=== PATIENT | male | born 1945 | race Caucasian/White ===

== ENCOUNTER 2017-12-27 06:45 | Emergency (ER) | payer MEDICARE, OTHER ==
[~2017-12-27] VITALS: Ht 180.3 cm; Wt 65.8 kg
[2017-12-27 07:46] LABS: Source, Urine Clean Catch
[2017-12-27 07:49] LABS: Bilirubin, Urine Neg (Neg); Blood, Urine 3+ (Neg); Glucose Qualitative, Urine Neg (Neg); Ketones, Urine 1+ (Neg); Leukocyte Esterase, Urine Neg (Neg); Nitrite, Urine Neg (Neg); Protein, Urine 1+ (Neg); Specific Gravity, Urine 1.025 (1.003-1.022); Urobilinogen, Urine NORM (Normal)
[2017-12-27 07:54] LABS: Appearance, Urine Clear (Clear); Color, Urine Yellow (P-Yellow)
[2017-12-27 07:56] LABS: Amorphous Light (0-Heavy); Bacteria Not Seen /hpf; Mucus Light (0-Heavy); Red Blood Cells, Urine 0-2 /hpf (0-2); Squamous Epithelial Cells Not Seen /hpf (Few); White Blood Cells, Urine Not Seen /hpf (0-5)
[2017-12-27 08:00] LABS: BASOPHILS ABSOLUTE AUTO 0.03 K/mm3 (0.00-0.23); BASOPHILS PERCENT AUTO 0 % (0-2); EOSINOPHILS ABSOLUTE AUTO 0.04 K/mm3 (0.00-0.68); EOSINOPHILS PERCENT AUTO 1 % (0-6); Hematocrit 44.1 % (37.0-53.0); Hemoglobin 14.4 g/dL (13.5-17.5); IMMATURE GRAN ABSOLUTE AUTO 0.04 K/mm3 (0.00-0.10); IMMATURE GRAN PERCENT AUTO 1 % (0-1); LYMPHOCYTES ABSOLUTE AUTO 0.69 K/mm3 (0.84-5.20); LYMPHOCYTES PERCENT AUTO 8 % (21-46); MONOCYTES PERCENT AUTO 5 % (4-13); Mean Corpuscular HGB 31.4 pg (26.0-34.0); Mean Corpuscular HGB Conc 32.7 g/dL (31.5-36.5); Mean Corpuscular Volume 96 fL (80-100); Mean Platelet Volume 10.7 fL (9.1-12.4); NEUTROPHILS PERCENT AUTO 86 % (41-73); Platelet Count 181 K/mm3 (150-400); RDW Coefficient Variation 12.9 % (11.7-14.2); RDW Standard Deviation 45.3 fL (35.1-46.3); Red Blood Cell Count 4.58 M/mm3 (4.30-5.90)
[2017-12-27 08:25] LABS: Alanine Aminotransfer (ALT/SGP 25 U/L (12-78); Albumin, Blood 3.8 g/dL (3.4-5.0); Alk Phos 77 U/L (50-136); Anion Gap 6 mmol/L (6-16); Aspartate Aminotrans (AST/SGOT 22 U/L (12-37); Bilirubin, Total 0.6 mg/dL (0.1-1.0); Blood Urea Nitrogen 16 mg/dL (8-24); Bun/Creatinine Ratio 19.6 (12.0-20.0); CO2, Blood 28 mmol/L (21-32); Calcium, Blood 8.6 mg/dL (8.5-10.1); Chloride, Blood 108 mmol/L (98-108); Creatinine, Blood 0.82 mg/dL (0.60-1.20); Globulin, Blood 3.9 g/dL (2.2-4.0); Glomerular Filtration Rate >60 (60-); Glucose, Blood 120 mg/dL (70-99); Sodium, Blood 142 mmol/L (136-145); Total Protein, Blood 7.7 g/dL (6.4-8.2)
[2017-12-27] MEDS ORDERED: Zofran Odt4 MG SL (09:16)
[2017-12-27] MEDS ORDERED: Ultram50 MG PO (09:16)
== END 2017-12-27 09:20 | disposition home or self-care (01) ==
LOC: ER 06:45
PROVIDERS: Physician Assistant
DX: R10.32 Left lower quadrant pain (principal); R11.0 Nausea; Z87.891 Personal history of nicotine dependence
CPT/HCPCS: 36415; 74176; 80053; 81000; 81001; 83690; 85025; 99284

== ENCOUNTER 2021-03-08 12:00 | Day surgery (SDC) | payer MEDICARE, OTHER ==
[~2021-03-08] VITALS: Ht 180.3 cm; Wt 62.8 kg
[~2021-03-08 12:00] MED LIST: Ultram50 MG PO; Zofran Odt4 MG SL
== END 2021-03-08 14:31 | disposition home or self-care (01) ==
LOC: ORSCSDS 12:00
PROVIDERS: Student in an Organized Health Care Education/Training Program
PROC: 0DBL8ZX Excision of Transverse Colon, Via Natural or Artificial Opening Endoscopic, Diagnostic (ICD-10-PCS; principal; 2021-03-08 13:15)
PROC: 0DBK8ZX Excision of Ascending Colon, Via Natural or Artificial Opening Endoscopic, Diagnostic (ICD-10-PCS; principal; 2021-03-08 13:15)
PROC: 0DBH8ZX Excision of Cecum, Via Natural or Artificial Opening Endoscopic, Diagnostic (ICD-10-PCS; principal; 2021-03-08 13:15)
DX: Z12.11 Encounter for screening for malignant neoplasm of colon (principal); Z86.010 Personal history of colon polyps; D12.3 Benign neoplasm of transverse colon; D12.2 Benign neoplasm of ascending colon; D12.0 Benign neoplasm of cecum; D12.5 Benign neoplasm of sigmoid colon; K57.30 Diverticulosis of large intestine without perforation or abscess without bleeding; K64.8 Other hemorrhoids; K64.4 Residual hemorrhoidal skin tags
CPT/HCPCS: 88305; J0330; J0461; J2405; J2704; J7120

== ENCOUNTER → 2021-03-20 | Outpatient (CLI) | payer MEDICARE, OTHER | END | disposition home or self-care (01) | LOC: LAB SHORT 14:52 → LAB 14:52 | DX: D22.5 Melanocytic nevi of trunk (principal); L57.0 Actinic keratosis | CPT/HCPCS: 88305 ==

== ENCOUNTER 2022-09-09 16:24 | Emergency (ER) | payer MEDICARE, OTHER ==
[~2022-09-09] VITALS: Ht 180.3 cm; Wt 68.0 kg
[2022-09-09] MEDS ORDERED: CEPH500 PO (17:31)
== END 2022-09-09 17:37 | disposition home or self-care (01) ==
LOC: ER 16:24
DX: S81.012A Laceration without foreign body, left knee, initial encounter (principal); W29.3XXA Contact with powered garden and outdoor hand tools and machinery, initial encounter; Z87.891 Personal history of nicotine dependence
CPT/HCPCS: 90714; A9270

== ENCOUNTER 2024-08-06 16:27 | Inpatient (IN) | payer MEDICARE, OTHER ==
[~2024-08-06] VITALS: Ht 180.3 cm; Wt 81.7 kg
[~2024-08-06 16:27] MED LIST changes: +Amiodarone HCl 50 MG / ML 3 ML Amp IV ONE; +Atropine Sulfate 0.1 MG/ML 10ML SYR IV ONE; +CEPH500 PO
[2024-08-06 18:10] LABS: BASOPHILS ABSOLUTE AUTO 0.01 K/mm3 (0.00-0.23); BASOPHILS PERCENT AUTO 0 % (0-2); EOSINOPHILS PERCENT AUTO 0 % (0-6); Hematocrit 46.6 % (37.0-53.0); IMMATURE GRAN ABSOLUTE AUTO 0.01 K/mm3 (0.00-0.10); IMMATURE GRAN PERCENT AUTO 0 % (0-1); LYMPHOCYTES ABSOLUTE AUTO 0.27 K/mm3 (0.84-5.20); LYMPHOCYTES PERCENT AUTO 5 % (21-46); MONOCYTES ABSOLUTE AUTO 0.05 K/mm3 (0.16-1.47); MONOCYTES PERCENT AUTO 1 % (4-13); Mean Corpuscular HGB 32.7 pg (26.0-34.0); Mean Corpuscular HGB Conc 34.3 g/dL (31.5-36.5); Mean Corpuscular Volume 95 fL (80-100); Mean Platelet Volume 10.8 fL (9.1-12.4); NEUTROPHILS ABSOLUTE AUTO 4.92 K/mm3 (1.96-9.15); NEUTROPHILS PERCENT AUTO 94 % (41-73); Platelet Count 205 K/mm3 (150-400); RDW Coefficient Variation 12.9 % (11.7-14.2); RDW Standard Deviation 44.4 fL (35.1-46.3); White Blood Cell Count 5.26 K/mm3 (4.00-11.30)
[2024-08-06 18:46] LABS: Magnesium, Blood 2.4 mg/dL (1.6-2.4)
[2024-08-06 18:56] LABS: Bilirubin, Total 0.5 mg/dL (0.1-1.0); Bun/Creatinine Ratio 22.3 (12.0-20.0); Calcium, Blood 9.5 mg/dL (8.5-10.1); Creatinine, Blood 0.63 mg/dL (0.60-1.20); Globulin, Blood 4.2 g/dL (2.2-4.0); Potassium, Blood 4.2 mmol/L (3.5-5.5); Total Protein, Blood 8.2 g/dL (6.4-8.2)
[2024-08-06 18:58] LABS: C-REACTIVE PROTEIN, EXT RANGE 1.63 mg/dL (0.000-0.300)
[2024-08-06 21:16] LABS: Appearance, CSF Clear (Clear); Color, CSF No Color (No Color)
[2024-08-06 21:17] LABS: RBC Count, CSF 2 /mm3 (0-0)
[2024-08-06 21:19] LABS: Cryptococcus Neoformans/Gattii Not Detected (NOT DETECT); Enterovirus Not Detected (NOT DETECT); Escherichia Coli K1 Not Detected (NOT DETECT); Haemophilus Influenza Not Detected (NOT DETECT); Herpes Simplex Virus 1 Not Detected (NOT DETECT); Herpes Simplex Virus 2 Not Detected (NOT DETECT); Human Herpesvirus 6 Not Detected (NOT DETECT); Human Parechovirus Not Detected (NOT DETECT); Listeria Monocytogenes Not Detected (NOT DETECT); Neisseria Meningitidis Not Detected (NOT DETECT); Streptococcus Agalactiae Not Detected (NOT DETECT); Streptococcus Pneumoniae Not Detected (NOT DETECT); Varicella Zoster Virus Not Detected (NOT DETECT)
[2024-08-06 21:25] LABS: Appearance, CSF Clear (Clear); Color, CSF No Color (No Color); RBC Count, CSF 126 /mm3 (0-0); WBC Count, CSF 0 /mm3 (0-5)
[2024-08-06 21:26] LABS: Glucose, CSF 76 mg/dL (40-70)
[2024-08-06 21:34] LABS: WBC Count, CSF 0 /mm3 (0-5)
[2024-08-06] MEDS ORDERED: Ondansetron HCl 2 MG / ML 2ML Vial IV PRN (22:10)
[2024-08-06] MEDS ORDERED: FLU VACC TS2024-25(6MOS UP)/PF 45 MCG/0.5 ML SYRINGE IM ONE (22:10)
[2024-08-06] MEDS ORDERED: Atropine Sulfate 0.1 MG/ML 10ML SYR IV PRN (22:35)
[2024-08-06] MEDS ORDERED: Lactated Ringer's 1,000 ML IV SCH (23:00)
[2024-08-06 23:25] LABS: Thyroid Stimulating Hormone 0.45 uIU/mL (0.360-4.800)
[2024-08-07] VITALS (43 sets, daily range): BP systolic 80–210; BP diastolic 50–122
[2024-08-07 01:32] LABS: Base Excess Venous -1.9 mmol/L; Bicarbonate Venous 22.6 mmol/L (24.0-30.0); PCO2 Venous 38.5 mmHg (38-42); pH Blood Venous 7.39 (7.34-7.37)
--- NOTE | 2024-08-07 01:49 | NUR ---
ASSUMED CARE TRANSFERED FROM PCU TO ICU FROM [facility]
--- NOTE | 2024-08-07 03:10 | NUR ---
UPDATE @ 0200 NURSE WAS WITH PATIENT DOING ASSESSMENT AND PATIENT STATED HE WAS GOING TO GET SICK. NURSE GOT HIM EMESIS BAG, PATIENT BECAME BRADYCRADIC 49 AND DIAPHORETIC WITH HYPOTENSION. PATIENT COULD NOT VOMIT AND NURSE GOT SUCTION AND HELPED PATIENT. SMALL AMOUNTS OF SALIVA WAS SUCTIONED. GOT PATIENT COLD RAGS PLACED ON NECK AND FOREHEAD. BLOOD SUGAR WAS CHECKED 135, HR WENT BACK UP WITH BLOOD PRESSURE. PATIENT STAtED HE FELT BETTER.
[2024-08-07 04:25] LABS: Base Excess Venous -2.8 mmol/L; Bicarbonate Venous 22.5 mmol/L (24.0-30.0); PCO2 Venous 34.4 mmHg (38-42); pH Blood Venous 7.41 (7.34-7.37)
--- NOTE | 2024-08-07 04:42 | NUR ---
UPDATE @ 0330 PATIENT CALLED NURSE WITH HELPS WHO IS AT BEDSIDE. PATIENT SATED IN WHISPER VOICE THAT HE NEEDED TO BE SUCTIONED. NURSE SUCTIONED HIM AND SALIVA WAS SUCTIONED OUT. NURSE ASKED PATEINT IF HE WAS BETTER AND PATIENT SAID YES. CALL LIGHT WITHIN REACH. DR. FLOWERS AWARE
[2024-08-07 04:51] LABS: BASOPHILS ABSOLUTE AUTO 0.01 K/mm3 (0.00-0.23); BASOPHILS PERCENT AUTO 0 % (0-2); EOSINOPHILS PERCENT AUTO 0 % (0-6); Hematocrit 42.9 % (37.0-53.0); Hemoglobin 14.6 g/dL (13.5-17.5); IMMATURE GRAN ABSOLUTE AUTO 0.05 K/mm3 (0.00-0.10); IMMATURE GRAN PERCENT AUTO 0 % (0-1); LYMPHOCYTES ABSOLUTE AUTO 0.41 K/mm3 (0.84-5.20); LYMPHOCYTES PERCENT AUTO 3 % (21-46); MONOCYTES ABSOLUTE AUTO 0.78 K/mm3 (0.16-1.47); MONOCYTES PERCENT AUTO 6 % (4-13); Mean Corpuscular HGB 31.4 pg (26.0-34.0); Mean Corpuscular Volume 92 fL (80-100); Mean Platelet Volume 10.4 fL (9.1-12.4); NEUTROPHILS ABSOLUTE AUTO 12.95 K/mm3 (1.96-9.15); NEUTROPHILS PERCENT AUTO 91 % (41-73); Platelet Count 206 K/mm3 (150-400); RDW Coefficient Variation 12.9 % (11.7-14.2); RDW Standard Deviation 43.4 fL (35.1-46.3); Red Blood Cell Count 4.65 M/mm3 (4.30-5.90)
[2024-08-07 05:26] LABS: Albumin, Blood 3.6 g/dL (3.4-5.0); Albumin/Globulin Ratio 0.9 (0.8-1.8); Bilirubin, Total 0.6 mg/dL (0.1-1.0); Bun/Creatinine Ratio 26.3 (12.0-20.0); Calcium, Blood 8.7 mg/dL (8.5-10.1); Creatinine, Blood 0.61 mg/dL (0.60-1.20); Globulin, Blood 3.8 g/dL (2.2-4.0); Magnesium, Blood 2.3 mg/dL (1.6-2.4); Potassium, Blood 4.1 mmol/L (3.5-5.5); Total Protein, Blood 7.4 g/dL (6.4-8.2)
--- NOTE | 2024-08-07 06:21 | NUR ---
UPDATE CALLED DR. FLOWERS ABOUT BLOOD PRESSURE OF 196/117 MAP OF 138. NO NEW ORDERS GIVEN.
--- NOTE | 2024-08-07 06:23 | NUR ---
SHIFT SUMMARY PATIENT ARRIIVED FROM [facility] @0045. PATIENT ADMITTED WITH [facility]'S HELP WITH INFOMATION. PATIENT GETS SOB WHEN HAVING TO TALK. PATIENT CAN NOT MOVE ARMS OR FEET. ARM ELVATED ON PILLOWS AT PATIENTS SIDE. PATIENT FEELS LIKE SALIVA IS STUCK IN THROAT. CALLS NURSE AND NURSE SUCTIONS. HAS 20G IV IN RFA AND 20G IV IN LFA. HAS 2L OF O2 ON VIA NASAL CANNULA. LR RUNNING @100MLS. NO URINE OUTPUT OF FIRST 4 HOURS, SCANNED BLADDER 527MLS, NURSE OFFERED TO STRAIGHT CATH OR PATIENT COULD TRY TO USE URINAL. PATEINT WAS ABLE TO USE URINAL 450MLS OUT BUT PATIENT COULD NOT FEEL HIMSELF GOING TO BATHROOM. SBP IN THE 190-200;S AWARE NO NEW ORDERS. CALL IF ABOVE 220. HR 80-90'S. DUE TO THE NO MOVEMENT IN ARMS CALL LIGHT IS WITHIN REACH OF PATEINT AND PATIENTS .
[2024-08-07 08:24] LABS: PO2 Arterial 412 mmHg (80-100)
[2024-08-07 08:25] LABS: PCO2 Arterial 73.2 mmHg (35-45); pH Blood Arterial 7.17 (7.35-7.45)
[2024-08-07] MEDS ORDERED: Enoxaparin 40 MG/0.4 ML SYR SC SCH (09:00)
--- NOTE | 2024-08-07 09:45 | NUR ---
AT SHIFT CHANGE PT WAS ON 3L NC WITH SPO2 MID 90'S. PT WAS ABLE TO NOD HEAD YES OR NO, SHRUG SHOULDERS, AND HAS VERY WEAK VOICE THAT HE ONLY SAYS FEW WORDS. UNABLE TO MOVE ARMS OR LEGS. AT BEDSIDE TO ASSIST WITH PT'S NEEDS AND ALERT NURSE WITH ANY ISSUES. AT 0800 PT'S YASH CAME OUT OF THE ROOM TO FIND A NURSE. PT WAS DIAPHORETIC, CHEST IS NOT RISING WITH INSPIRATION OR EXPIRATION, SPO2 85%, PT IS NOT RESPONSIVE WITH FORWARD GAZE, PUPILS EQUAL BUT NOT REACTIVE. NOTIFIED DR. MERLOS, CALLED DR. CACERES TO MAKE HIM AWARE OF PT, AND RT TO BEDSIDE WITH BIPAP. AFTER PLACING ON BIPAP PT STARTED COMING AROUND AND WAS ABLE TO NOD HEAD YES OR NO AGAIN. CHEST IS RISING AND FALLING WITH GOOD TIDAL VOLUMES. PUPILS NOW REACTIVE AND EQUAL. PT DOES REPORT HE HAS HAD DOUBLE VISION OFF AND ON FOR THE LAST DAY. VERY WEAK VOICE. CANNOT MOVE ARMS OR FINGERS PAST SHRUGGING SHOULDERS. HAS DIFFICULTY TRACKING WITH EYE'S. HE CAN TRACK UP AND DOWN BUT SIDE TO SIDE IS VERY LIMITED. HAS SENSATION TO TOUCH ON BLE'S, ON SHOULDERS, AND AROUND FACE. CANNOT FEEL TOUCH TO HANDS. DR. MERLOS IS SPEAKING WITH OTHER HOSPITALS WITH NEUROLOGY TO POSSIBLY TRANSFER PT. MONITORING RESP CLOSELY WITH DR. CACERES IN UNIT AND INTUBATION SETUP AT DOORWAY IN CASE PT DECLINES. PT STATES HE IS OK WITH INTUBATION. REMAINS AT BEDSIDE.
[2024-08-07] MEDS ORDERED: IMMUN GLOB G(IGG)/PRO/IGA 0-50 100 ML IV SCH (11:05)
--- NOTE | 2024-08-07 12:29 | NUR ---
INTUBATION 1230 - Dr Garcia at bedside, preparing for RSI. 05/02, 100% FiO2. 1233 - 50 mcg fentanyl 1234 - 60 mg propofol 1237 - Successful intubation. SpO2 100%. Breath sounds auscultated bilaterally. ETCO2 45. SpO2 100%. 8.0 ETT, 24 cm at teeth.
[2024-08-07] MEDS ORDERED: FentaNYL Citrate 50 MCG/ML 2 ML Injection ONE (12:30)
[2024-08-07] MEDS ORDERED: FentaNYL Citrate 50 MCG/ML 2 ML Injection IV ONE (12:30)
[2024-08-07] MEDS ORDERED: propofoL 100 ML IV ONE (12:40)
--- NOTE | 2024-08-07 12:45 | NUR ---
DECISION WAS MADE BY DR. CACERES TO INTUBATE PT TO SECURE AIRWAY FOR TRANSFER TO [facility]. SEE INTUBATION NOTE.
[2024-08-07] MEDS ORDERED: propofoL 100 ML IV PRN (12:50)
--- NOTE | 2024-08-07 14:40 | NUR ---
SUMMARY PT BEING TRANSFERED TO [facility]. AIRWAY SECURED BEFORE TRANSPORTATION. PT IS ON 20MCG/KG/MIN OF PROPOFOL. PT IS AWAKE AND ABLE TO NOD HEAD YES OR NO. UNABLE TO MOVE EXTREMITIES. IGG THERAPY STARTED AND WAS TITRATING BEFORE TRANSPORT, 3RD BOTTLE WAS SENT WITH EMS AND INSTRUCTED ON HOW TO GIVE. AT BEDSIDE BEFORE TRANSPORT.
[2024-08-07] MEDS ORDERED: Hydrogen Peroxide 1.5 % Solution MT SCH (16:00)
[2024-08-07] MEDS ORDERED: Phenylephrine HCl 100 MCG/ML-NS 10MLSYR (1MG/10ML) IV ONE (16:54)
[2024-08-07] MEDS ORDERED: Propofol 10mg/ml 20 ml Vial (Procedural) IV ONE (16:54)
[2024-08-07] MEDS ORDERED: Cetylpyridinium Chloride 1 EA MISC MT SCH (20:00)
[2024-08-09 13:04] LABS: LYME VLSE1/PEPC10 ABS, ELISA 0.19 IV (<=0.90)
[2024-08-10 15:30] LABS: ACETYLCHOLINE BLOCKING AB 8 % (0-26)
[2024-08-11 23:10] LABS: MUSK AB IGG CBA IFA SCREEN, S <1:10 (<1:10)
== END 2024-08-07 14:35 | disposition short-term general hospital (02) | DRG 56 ==
LOC: ER 16:27 → ERHOLD 16:28 → ICUE 16:28 → PCU 08-07 00:20 → ICUE 08-07 00:45
PROVIDERS: Emergency Medicine; Internal Medicine; Physician Assistant; ADMIT Student in an Organized Health Care Education/Training Program
PROC: 009U3ZX Drainage of Spinal Canal, Percutaneous Approach, Diagnostic (ICD-10-PCS; 2024-08-06)
PROC: 5A09357 Assistance with Respiratory Ventilation, Less than 24 Consecutive Hours, Continuous Positive Airway Pressure (ICD-10-PCS; principal; 2024-08-07)
PROC: 30233S1 Transfusion of Nonautologous Globulin into Peripheral Vein, Percutaneous Approach (ICD-10-PCS; 2024-08-07)
DX: G70.00 Myasthenia gravis without (acute) exacerbation (principal); J96.02 Acute respiratory failure with hypercapnia; G83.9 Paralytic syndrome, unspecified; R00.1 Bradycardia, unspecified; R20.0 Anesthesia of skin; R49.0 Dysphonia; J44.9 Chronic obstructive pulmonary disease, unspecified; E78.5 Hyperlipidemia, unspecified; Z87.19 Personal history of other diseases of the digestive system; Z98.890 Other specified postprocedural states; Z87.891 Personal history of nicotine dependence
CPT/HCPCS: 0241U; 31500; 36415; 36600; 62270; 70450; 71045; 72125; 80048; 80053; 82550; 82607; 82803; 82945; 82947; 83735; 83874; 84100; 84157; 84443; 85025; 85651; 86041; 86042; 86140; 86366; 86618; 87483; 89051; 93005; 93010; 94002; 94660; 96374; 99284-25; 99285-25; G0378; J0282; J0461; J1100; J1459; J2371; J2405; J2704; J3010; J7120